=== PATIENT | female | born 1995 | race Caucasian/White ===

== ENCOUNTER 2022-03-20 07:43 | Inpatient (IN) ==
[2022-03-20] MEDS ORDERED: OXYTOCIN 30 UNITS/500 ML BAG IV PRN ×3 (08:43→22:33)
--- NOTE | 2022-03-20 09:23 | History & Physical Report ---
Date of Service March 20, 2022 Assessment & Plan (1) Encounter for induction of labor: Plan: 26 y/o G1 at 39 5/7 wga presents for eIOL VSS Fetus cat 1 Labor - will start pit. BPs normal today, will continue to monitor GBS neg epidural PRN Admission and Anticipated Discharge Date Admission Date: March 20, 2022 History of Present Illness Chief Complaint: eIOL Primary Care Provider: Jazz Hobbs DO 26 y/o G1 at 39 5/7 wga presents for eIOL. Sanchez bulb fell out last night. +FM; denies reg ctx, LOF, VB. Pt has been having intermittent HAs with floaters. BPs have occ been mild range in clinic but normalize when sent to L&D and normal workups. PNI: Labile BPs Past DIRECTOR ORANGE Hx: G1 denies hx STIs reports normal pap 2020 at [facility] [place] Allergies Allergy/AdvReac Type Severity Reaction Status Date / Time No Known Allergies Allergy Verified 03/20/22 08:08 Home Medications Medication Instructions Recorded Confirmed Type albuterol sulfate 90 mcg/actuation 2 puff INHALATION Q6H PRN 09/20/20 03/20/22 History aerosol inhaler prenat.vits,roxie,[id number] 1 tab PO DAILY 08/06/21 03/20/22 History doxylamin 12.5 mg-PSE 10 mg-DM 20 1 packet PO Q4H PRN 03/20/22 03/20/22 History mg-acetaminophen 650 mg oral pwdr pk ([place] Plus Cold-Flu) Patient History Medical History Acquired hallux valgus of right foot Asthma Classic migraine with aura History of MRI of brain and brain stem Done in 2016 for workup of PEGUERO, reportedly normal per pt History of ovarian cyst functional cysts, never required surgery Surgical History H/O wisdom tooth extraction Family History Aunt Colorectal cancer maternal great aunt Mother Anemia Anxiety Grandmother (Maternal) Diabetes Hypertension Denies family history of Ovarian cancer Breast cancer Social History Smoking Status: Never smoker Second Hand Exposure: No; Hx Alcohol Use: No Hx Substance Use: No Preferred Language: Telugu Communication Ability: Effective Broom Stitcher Required: No Beliefs That Will Affect Care: None marital status: marital status details: John (30) [phone] Current Living Situation: Spouse Current Living Situation Comment: lives with spouse, no pets. current occupational status: employed current occupation: Director @ [employer] Other Information That Helps Us Care for You: No Feels Safe at Home: Yes Safety Concerns: Feels Safe At This Time Assistive Devices: None Physical Exam Genitourinary: OB Exam Abdomen: + vertex and + estimated weight (8-9) Manual OB Exam: + cervical dilation (2-3), + cervical effacement 50% and + station high OB Exam Monitor Tracing: + external FHT monitor used, + external uterine monitor used (irreg ctx) and + category I (150/mod/+accel/-decel) Results & Data ([facility]) Vital Signs (Past 12 Hours) Vital Signs Temp Pulse Resp BP 03/20/22 08:06 98.8 F 16 03/20/22 08:05 106 H 128/60 Laboratory Results OB Labs: Blood Type O Positive 08/13/21 Antibody Screen NEGATIVE 08/13/21 Hemoglobin 12.3 g/dL (12.0-16.0) 03/12/22 Hematocrit 36.4 % (37-47) L 03/12/22 Mean Corpuscular Volume 89.2 fL (80-100) 03/12/22 Platelet Count 222 K/uL (130-400) 03/12/22 Rubella IgG Antibody Immune (Immune) 08/13/21 Rapid Plasma Reagin Nonreactive (Nonreactive) 08/13/21 Hepatitis B Surface Antigen Neg (Neg) 08/13/21 Hepatitis C Antibody Neg (Neg)B 08/13/21 HIV (1&2) Ab and P24 Ag, 4th Gener Neg (Neg) 08/13/21 Glucose 1 Hour 50 gm Load 116 mg/dl (70-130) 01/02/22 OB Optional Labs: Chlamydia trachomatis RNA NOT DETECTED (NOT DETECTED) 08/13/21 Neisseria gonorrhoeae RNA NOT DETECTED (NOT DETECTED) 08/13/21 GBS neg Diagnostic Findings ant plac Coding Level of Care Code None Diagnoses Encounter for induction of labor Z34.90
[2022-03-20] MEDS: LACTATED RINGER'S 1,000 ML IV PRN ×3 (09:29→18:52)
[2022-03-20 09:33] LABS: Hematocrit (blood only) 33.8 % (37-47); Hemoglobin 11.5 g/dL (12.0-16.0); Mean Corpuscular Hemoglobin 30.2 pg (25-34); Mean Corpuscular Volume 88.7 fL (80-100); Mean Platelet Volume 9.6 fL (7.4-10.4); Platelet Count 228 K/uL (130-400); RDW Coefficient of Variation 13.5 % (11.5-14.5); RDW Standard Deviation 44.2 fL (36.4-46.3); Red Blood Count 3.81 M/uL (4.2-5.4); White Blood Count 11.61 K/uL (4.8-10.8)
--- NOTE | 2022-03-20 14:04 | Labor Progress Brief Note ---
Date of Service March 20, 2022 Subjective rating ctx 3-12/29 Assessment & Plan (1) Encounter for induction of labor: Plan: 26 y/o G1 at 39 5/7 wga for eIOL VSS Fetus cat 1 Labor - pit at 14, plan for arom in next 1-2 hrs w/ next check gbs neg epidural prn Admission and Anticipated Discharge Date Admission Date: March 20, 2022 Physical Exam Genitourinary: Manual OB Exam: + cervical dilation 3 cm, + cervical effacement 50% and + station -2 OB Exam Monitor Tracing: + external FHT monitor used, + external uterine monitor used (q3-4) and + category I (125/mod/+accel/-decel) Results & Data ([facility]) Vital Signs (Past 12 Hours) Vital Signs Temp Pulse Resp BP 03/20/22 13:57 84 115/58 L 03/20/22 12:57 85 107/57 L 03/20/22 11:57 84 111/58 L 03/20/22 11:05 98.1 F 16 03/20/22 10:58 98 H 99/72 L 03/20/22 10:03 93 H 96/63 L 03/20/22 08:06 98.8 F 16 03/20/22 08:05 106 H 128/60 Coding Level of Care Code None Diagnoses Encounter for induction of labor Z34.90
--- NOTE | 2022-03-20 15:20 | Labor Progress Brief Note ---
Date of Service March 20, 2022 Subjective Ctx getting worse Assessment & Plan (1) Encounter for induction of labor: Plan: 26 y/o G1 at 39 5/7 wga for eIOL VSS Fetus cat 1 Labor - pit at 16, now s/p arom gbs neg epidural prn Admission and Anticipated Discharge Date Admission Date: March 20, 2022 Physical Exam Genitourinary: Manual OB Exam: + cervical dilation (3-4), + cervical effacement 50%, + station -2 and + amniotic fluid (arom clear) OB Exam Monitor Tracing: + external FHT monitor used, + external uterine monitor used (q3-4) and + category I (130/mod/+accel/-decel) Results & Data ([facility]) Vital Signs (Past 12 Hours) Vital Signs Temp Pulse Resp BP 03/20/22 15:00 93 H 136/60 03/20/22 13:57 84 115/58 L 03/20/22 12:57 85 107/57 L 03/20/22 11:57 84 111/58 L 03/20/22 11:05 98.1 F 16 03/20/22 10:58 98 H 99/72 L 03/20/22 10:03 93 H 96/63 L 03/20/22 08:06 98.8 F 16 03/20/22 08:05 106 H 128/60 Coding Level of Care Code None Diagnoses Encounter for induction of labor Z34.90
[2022-03-20] MEDS ORDERED: ePHEDrine sulfate 50 MG/ML AMP ONE (15:26)
[2022-03-20] MEDS ORDERED: fentaNYL citrate 100 MCG/2 ML VIAL ONE (15:27)
[2022-03-20] MEDS ORDERED: fentaNYL 2MCG/ML ROPIVACAINE 1.25MG/ML 100 ML BAG EPI ONE (15:27)
[2022-03-20] MEDS ORDERED: SODIUM CHLORIDE 0.9% INJ 10 ML VIAL ONE (15:27)
[2022-03-20] MEDS ORDERED: BUPIVACAINE 0.25% 30 ML VIAL ONE (15:27)
[2022-03-20] MEDS ORDERED: ePHEDrine sulfate 50 MG/ML AMP IV PRN (15:45)
[2022-03-20] MEDS ORDERED: fentaNYL 2MCG/ML ROPIVACAINE 1.25MG/ML 100 ML BAG EPI PRN (15:45)
[2022-03-20] MEDS ORDERED: CALCIUM CARBONATE 500 MG CHEWABLE TAB PO PRN (15:45)
[2022-03-20] MEDS ORDERED: ONDANSETRON INJ 2 MG/ML 2 ML VIAL IV PRN (15:45)
[2022-03-20] MEDS ORDERED: NALOXONE HCL 0.4 MG/1 ML VIAL/CARP IV PRN (15:45)
[2022-03-20] MEDS ORDERED: diphenhydrAMINE 50 MG/ML VIAL IV PRN (15:45)
[2022-03-20] MEDS ORDERED: NALBUPHINE HCL INJ 10 MG/ML AMP IV PRN (15:45)
[2022-03-20] MEDS ORDERED: NALOXONE HCL 1 MG in SODIUM CHLORIDE 0.9% 1000ML 1,000 ML IV PRN (15:45)
--- NOTE | 2022-03-20 15:48 | Anesthesiology Consultation ---
Date of Service March 20, 2022 Assessment & Plan Chart Review Chart Review: Patient NOT seen in Pre Admission Testing and Acceptable Risk for Labor Epidural Consults Requested none ASA ASA2 Proposed Anesthesia Anesthesia Type: Labor Epidural and CSE Risk / Benefits Reviewed With: PT / POA / Parent / Guardian, Accepts Plan and Informed Consent Obtained History Height/Weight Height: 5 ft 6 in Weight: 99.79 kg Allergies Allergy/AdvReac Type Severity Reaction Status Date / Time No Known Allergies Allergy Verified 03/20/22 08:08 Medications Home Medications Medication Instructions Recorded Confirmed Last Taken albuterol sulfate 90 mcg/actuation 2 puff INHALATION Q6H PRN 09/20/20 03/20/22 Unknown aerosol inhaler prenat.vits,roxie,[id number] 1 tab PO DAILY 08/06/21 03/20/22 03/19/22 22:00 doxylamin 12.5 mg-PSE 10 mg-DM 20 1 packet PO Q4H PRN 03/20/22 03/20/22 03/20/22 06:30 mg-acetaminophen 650 mg oral pwdr pk ([place] Plus Cold-Flu) Active Medications Generic Name Dose Route Start Last Admin Trade Name Freq PRN Reason Stop Dose Admin Lactated Ringer's 1,000 mls @ 125 mls/hr 03/20/22 08:43 03/20/22 15:30 Lr IV 03/22/22 08:42 999 mls/hr .Q8H PRN Administration L&D Protocol Protocol Oxytocin 30 units in 500 mls @ 14 mls/hr 03/20/22 08:46 03/20/22 13:30 Pitocin IV 03/22/22 08:45 0.84 units/hr .Q24H PRN 14 mls/hr Labor Induction/Augmentation Titration Protocol 0.84 UNITS/HR NPO Date Last Intake of Fluids: 03/20/22 Time Last Intake of Fluids: 14:30 Date Last Intake of Solids: 03/20/22 Time Last Intake of Solids: 07:00 Past Medical History Medical History Acquired hallux valgus of right foot Asthma Classic migraine with aura History of MRI of brain and brain stem Done in 2016 for workup of PEGUERO, reportedly normal per pt History of ovarian cyst functional cysts, never required surgery Exercise / Class Metabolic Activity II 4-5 Yardwork/Stairs/Walk up hill Past Family History Family History Aunt Colorectal cancer maternal great aunt Mother Anemia Anxiety Grandmother (Maternal) Diabetes Hypertension Denies family history of Ovarian cancer Breast cancer Past Surgical History Surgical History H/O wisdom tooth extraction Past Anesthesia History No Hx of Anesthesia Complications and No Family Hx of Anesthesia Complications History of PONV No Hx of PONV and No Hx of Motion Sickness Social History Smoking Status: Never smoker Hx Alcohol Use: No Hx Substance Use: No substance use type: does not use Review of Systems no chest pain or sob Physical Exam Vital Signs Last Vital Signs Temp 36.7 C 03/20/22 11:05 Pulse 93 H 03/20/22 15:42 Resp 16 03/20/22 11:05 BP 136/60 03/20/22 15:00 Pulse Ox 100 03/20/22 15:42 ENMT Mouth: no TMJ abnormality Thyromental Distance: > or= 3.5 Finger Breadths Mallampati Class: II Neck normal visual inspection Respiratory normal respiratory effort Auscultation: lungs clear to auscultation bilaterally Cardiovascular Rate/Rhythm: regular rate and regular rhythm Musculoskeletal Spine: normal cervical ROM Neurologic moves all extremities Psychiatric Orientation: alert and oriented x 3 Testing Laboratory Results 03/20/22 09:15 Blood Type O Positive 03/20/22 09:15 Antibody Screen NEGATIVE 03/20/22 09:15
--- NOTE | 2022-03-20 22:22 | Delivery Summary ---
Vaginal Delivery Summary Date of Service March 20, 2022 Vaginal Delivery Summary and 2nd Degree LAC PREOPERATIVE DIAGNOSIS: 1. Single intrauterine at 39 5/7 wga 2. Elective induction POSTOPERATIVE DIAGNOSIS: 1. Single intrauterine at 39 5/7 wga 2. Elective induction 3. Delivered PROCEDURE: 1. Normal spontaneous vaginal delivery. SURGEON: Gloria Shanks MD ANESTHESIA: Epidural. ESTIMATED BLOOD LOSS: 300 mL FLUIDS: Continuous LR. URINE OUTPUT: None. COMPLICATIONS: None. CONDITION: Stable. INDICATIONS: 26 y/o G1 at 39 5/7 wga presented for elective induction. She has had labile blood pressures over the last few weeks, BP was normal today. Sanchez bulb was placed and spontaneously expulsed. Pitocin was then started and she underwent artificial rupture of membranes. She received an epidural for pain control. Due to variable decels, pitocin was turned off. Approximately 1 hour later pitocin was restarted. Shortly thereafter variables were again noted, she was checked and found to be complete and desired to push. FINDINGS: A viable female infant, weight pending with Apgars of 8 and 8 at 1 and 5 minutes respectively. SPECIMEN: Cord blood OPERATIVE REPORT: The patient progressed to 10 cm, 100% effaced and +2 station, pushed over intact perineum with anesthesia to deliver a viable female infant, weight and Apgars as above. Head of delivered in APOLONIA position. No nuchal cord was present. Body and shoulders were delivered without difficulty. was delivered to maternal abdomen and nursing staff. Delayed cord clamping was performed for 60 seconds. Cord was clamped and cut. Cord blood was obtained. Placenta delivered spontaneously intact with 3-vessel cord. IV oxytocin and fundal massage were given for excellent hemostasis. Vagina, cervix, perineum, and placenta were inspected. A second degree laceration was noted and repaired using 3-0 Vic[address] a [address]1. There was excellent hemostasis. Sponge and needle counts correct x2. No sponges were left behind. Mother and stable in immediate period. [facility] [place] Vaginal Delivery Charge Vaginal Delivery Codes: 65978 global code for the antepartum, delivery, and post- Delivery Type Details: and 2nd Degree LAC
[2022-03-20] MEDS ORDERED: bisacodyL 10 MG SUPP PR PRN (22:33)
[2022-03-20] MEDS ORDERED: DIPHTHERIA/TETANUS/PERTUSSIS 0.5 ML SYR/VIAL IM ONE (22:33)
[2022-03-20] MEDS ORDERED: ALBUTEROL HFA 8 GM INHALER INH PRN (22:33)
[2022-03-20] MEDS ORDERED: HYDROCORTISONE ACETATE 25 MG SUPP PR PRN (22:33)
[2022-03-20] MEDS ORDERED: [UNRECOGNIZED DRUG - OTHER] PO PRN (22:33)
[2022-03-20] MEDS ORDERED: ACETAMINOPHEN 325 MG TAB PO PRN (22:33)
[2022-03-20] MEDS: BENZOCAINE 20% AER SPR 82.5 GM CAN EXT PRN (23:22)
[2022-03-21] MEDS: BENZOCAINE 20% AER SPR 82.5 GM CAN EXT PRN (00:53)
[2022-03-21] MEDS: IBUPROFEN 600 MG TAB PO PRN ×4 (04:00→19:55)
--- NOTE | 2022-03-21 07:02 | Obstetrical Progress Note ---
Date of Service March 21, 2022 Assessment & Plan (1) Encounter for care and examination after delivery: Plan: Patient is a 26-year-old now G1, P1 female who delivered via normal spontaneous vaginal delivery, day 1. Patient had no complications. -Continue routine care -O+, antibody negative, rubella immune, GBS negative -Encouraged ambulation and breast-feeding -Continue to monitor cough, seems to be improving -6-week follow-up with Dr. Shanks Admission and Anticipated Discharge Date Admission Date: March 20, 2022 Supervising Physician Co-Signing Physician Notes Resident Physician Supervision Note: I was present with Dr. Perez during the history and exam. I discussed the case with the resident and agree with the findings and plan as documented in the note. Any exceptions or clarifications are listed here: PP1 s/p , doing well. VSS, exam benign and wnl. Continue rout pp care Documented By: Gloria Shanks MD Subjective Patient is a 26-year-old now G1, P1 female who delivered via normal spontaneous vaginal delivery, day 1. Patient had no complications. Patient overall doing well. Ambulating around the room and voiding without difficulty. Patient is eating and drinking without nausea or vomiting. Passing gas. Patient is breast-feeding without difficulty. Does report that she is having a cough that made her pain difficult to bear yesterday but it does seem to be improving especially after waking up this morning. Pain controlled today. Lochia improving. patient otherwise denies fever, chills, chest pain, shortness of breath, UTI symptoms, or headache. Patient has no other complaints at this time. Review of Systems Review of Systems: All systems reviewed & are unremarkable except as noted in HPI & below Physical Exam Constitutional: WD/WN, vitals as above Eyes: + anicteric sclerae Neck: normal visual inspection Respiratory: normal respiratory effort, lungs clear to auscultation Cardiovascular: RRR, no murmur, no edema Gastrointestinal (Abdomen): normal bowel sounds, soft, nontender, no hepatosplenomegaly Musculoskeletal: Head/Neck/Chest: normocephalic and head atraumatic Skin: no rashes, warm and dry Neurologic: moves all extremities Psychiatric: A+Ox3, euthymic affect Genitourinary: Uterine fundus palpated at the level of the umbilicus, firm Results & Data ([facility]) Vital Signs (Past 12 Hours) Vital Signs Temp Pulse Pulse Resp BP BP Pulse Ox 03/21/22 03:30 36.9 C 83 16 116/77 97 03/21/22 01:00 36.7 C 87 16 126/78 97 03/21/22 00:10 93 H 18 129/72 03/20/22 23:44 99 H 119/73 03/20/22 23:40 18 03/20/22 23:16 97 H 124/59 L 03/20/22 23:10 18 03/20/22 23:01 86 141/83 H 03/20/22 22:55 18 03/20/22 22:52 86 97 03/20/22 22:47 96 H 96 03/20/22 22:46 95 H 132/85 03/20/22 22:42 84 97 03/20/22 22:40 18 03/20/22 22:37 90 97 03/20/22 22:32 85 97 03/20/22 22:28 93 H 133/63 03/20/22 22:27 86 96 03/20/22 22:25 18 03/20/22 22:23 89 138/61 03/20/22 22:22 90 97 03/20/22 22:18 97 H 143/93 H 03/20/22 22:17 97 H 97 03/20/22 22:12 94 H 134/64 97 03/20/22 22:10 18 03/20/22 22:07 94 H 95 03/20/22 22:06 94 H 94 03/20/22 22:04 90 144/72 H 03/20/22 22:02 99 H 96 03/20/22 21:57 117 H 99 03/20/22 21:52 108 H 98 03/20/22 21:47 95 H 97 03/20/22 21:44 97 H 143/79 H 03/20/22 21:42 108 H 96 03/20/22 21:37 98 H 97 03/20/22 21:36 104 H 92 03/20/22 21:32 108 H 97 03/20/22 21:29 94 H 136/79 03/20/22 21:27 93 H 97 03/20/22 21:22 101 H 98 03/20/22 21:17 100 H 98 03/20/22 21:15 102 H 142/79 H 03/20/22 21:12 99 H 98 03/20/22 21:09 37.2 C 18 03/20/22 21:07 104 H 98 03/20/22 21:02 101 H 99 03/20/22 20:59 104 H 136/75 03/20/22 20:57 101 H 99 03/20/22 20:52 104 H 99 03/20/22 20:47 107 H 99 03/20/22 20:44 97 H 133/70 03/20/22 20:42 108 H 100 03/20/22 20:37 111 H 100 03/20/22 20:32 107 H 100 03/20/22 20:30 105 H 142/75 H 03/20/22 20:27 93 H 100 03/20/22 20:22 89 100 03/20/22 20:17 86 100 03/20/22 20:14 81 122/64 03/20/22 20:12 80 99 03/20/22 20:07 77 100 03/20/22 20:02 80 100 03/20/22 19:59 80 124/65 03/20/22 19:57 83 100 03/20/22 19:52 94 H 99 03/20/22 19:47 90 99 03/20/22 19:44 84 123/67 03/20/22 19:42 84 98 03/20/22 19:37 92 H 100 03/20/22 19:32 87 100 03/20/22 19:29 81 113/62 03/20/22 19:27 83 100 03/20/22 19:22 84 99 03/20/22 19:17 76 99 03/20/22 19:14 75 124/64 03/20/22 19:12 84 99 03/20/22 19:10 36.8 C 18 03/20/22 19:07 81 99 03/20/22 19:02 81 99
[2022-03-21] MEDS: DOCUSATE SODIUM 100 MG CAP PO SCH ×2 (08:36→22:11)
[2022-03-21] MEDS: PRENATAL VITAMIN 1 TAB PO SCH (08:36)
[2022-03-21] MEDS: FERROUS SULFATE 325 MG TAB PO SCH (08:36)
--- NOTE | 2022-03-21 11:33 | Anesthesia Procedure Note ---
Date of Service March 21, 2022 Anesthesia Post Epidural Note Vital Signs Vital Signs: Temp Pulse Resp BP Pulse Ox 36.9 C 83 16 116/77 97 03/21/22 03:30 03/21/22 03:30 03/21/22 03:30 03/21/22 03:30 03/21/22 03:30 Notes Mental Status: alert / awake / arousable Patient Amnestic to Procedure: No Nausea / Vomiting: adequately controlled Pain: adequately controlled Airway Patency, RR, SpO2: stable & adequate BP & HR: stable & adequate Hydration State: stable & adequate Neuraxial Anesthesia: was administered and sensory block is resolving Anesthetic Complications: no major complications apparent and Pt Satisfied with anesthetic care Epidural: Removed without complications and With tip intact
[2022-03-21] MEDS ORDERED: bisacodyL 5 MG TABEC PO SCH (20:00)
[2022-03-22] MEDS: IBUPROFEN 600 MG TAB PO PRN ×2 (00:59→08:14)
[2022-03-22] MEDS ORDERED: PSEUDOEPHEDRINE HCL 30 MG TAB PO PRN (04:46)
--- NOTE | 2022-03-22 05:17 | Obstetrical Progress Note ---
Date of Service March 22, 2022 Assessment & Plan (1) Encounter for care and examination after delivery: Plan: Patient is a 26-year-old now G1, P1 female who delivered via normal spontaneous vaginal delivery, day 2. Patient had no complications. -Continue routine care, discharge today if pt feels ready, discharge instructions reviewed -O+, antibody negative, rubella immune, GBS negative -Encouraged ambulation and breast-feeding -Continue to monitor cough, seems to be improving -6-week follow-up with Dr. Shanks Admission and Anticipated Discharge Date Admission Date: March 20, 2022 Supervising Physician Co-Signing Physician Notes Resident Physician Supervision Note: I was present with Dr. Perez during the history and exam. I discussed the case with the resident and agree with the findings and plan as documented in the note. Any exceptions or clarifications are listed here: PPD#2 doing well. DC home today. Instructions reviewed. Documented By: Puja Arias, DO Subjective Patient is a 26-year-old now G1, P1 female who delivered via normal spontaneous vaginal delivery, day 2. Patient had no complications. Patient overall doing well. Ambulating around the room and voiding without difficulty. Patient is eating and drinking without nausea or vomiting. Passing gas. Patient is breast-feeding without difficulty. Patient reports that her cough over the past couple of days has improved significantly. Pain controlled today. Lochia improving. patient otherwise denies fever, chills, chest pain, shortness of breath, UTI symptoms, or headache. Patient has no other complaints at this time. Review of Systems Review of Systems: All systems reviewed & are unremarkable except as noted in HPI & below Physical Exam Constitutional: WD/WN, vitals as above Eyes: + anicteric sclerae Neck: normal visual inspection Respiratory: normal respiratory effort, lungs clear to auscultation Cardiovascular: RRR, no murmur, no edema Gastrointestinal (Abdomen): normal bowel sounds, soft, nontender, no hepatosplenomegaly Musculoskeletal: Head/Neck/Chest: normocephalic and head atraumatic Skin: no rashes, warm and dry Neurologic: moves all extremities Psychiatric: A+Ox3, euthymic affect Genitourinary: Uterine fundus palpated at the level of the umbilicus, firm Results & Data ([facility]) Vital Signs (Past 12 Hours) Vital Signs Temp Pulse Resp BP Pulse Ox 03/22/22 04:06 36.5 C 75 16 117/84 95 03/21/22 23:07 36.9 C 67 16 111/74 97 03/21/22 19:50 36.5 C 82 18 109/72 97
[2022-03-22] MEDS: PRENATAL VITAMIN 1 TAB PO SCH (08:14)
[2022-03-22] MEDS: FERROUS SULFATE 325 MG TAB PO SCH (08:14)
[2022-03-22] MEDS: DOCUSATE SODIUM 100 MG CAP PO SCH (08:15)
== END 2022-03-22 13:00 | disposition home or self-care (01) | DRG 807 ==
LOC: 4S1 07:43 → 4E2 03-21 00:42

== ENCOUNTER 2024-05-30 07:39 | Inpatient (IN) ==
[2024-05-30] MEDS ORDERED: OXYTOCIN 30 UNITS/NSS 30 UNITS/500 ML BAG IV PRN ×2 (07:44→20:31)
[2024-05-30] MEDS ORDERED: LIDOCAINE 1% LOCAL 20 ML VIAL INFIL PRN (07:44)
[2024-05-30 08:07] LABS: Hematocrit (blood only) 37.8 % (37.0-47.0); Hemoglobin 12.6 g/dl (12.0-16.0); Mean Corpuscular Hemoglobin 29.2 pg (25.0-34.0); Mean Corpuscular Hgb Conc 33.3 g/dL (32.0-36.0); Mean Corpuscular Volume 87.5 fL (80.0-100.0); Mean Platelet Volume 10.5 fL (9.4-12.4); Platelet Count 231 K/uL (130-400); RDW Coefficient of Variation 13.9 % (11.5-14.5); RDW Standard Deviation 43.8 fL (36.4-46.3); Red Blood Count 4.32 M/uL (4.20-5.40); White Blood Count 10.65 K/ul (4.8-10.8)
--- NOTE | 2024-05-30 08:43 | Labor Progress Brief Note ---
Date of Service May 30, 2024 Subjective No OB complaints upon arrival. For IOL given successful ECV and now >39wk. Assessment & Plan (1) Encounter for induction of labor: Plan: US to confirm cephalic, and then begin pit, AROM when able, epidural on request. Admission and Anticipated Discharge Date Admission Date: May 30, 2024 Physical Exam Genitourinary: Cvx unchanged from last office exam, /-2/soft/post FHT Cat 1 Rogers quiet. Results & Data Vital Signs (Past 12 Hours) Vital Signs Temp Pulse Resp BP 05/30/24 08:07 98.6 F 20 05/30/24 07:53 97 H 140/82 Coding Level of Care Code None Diagnoses Encounter for induction of labor Z34.90
[2024-05-30] MEDS: LACTATED RINGER'S 1,000 ML IV PRN (08:49)
[2024-05-30] MEDS: OXYTOCIN 30 UNITS/NSS 30 UNITS/500 ML BAG IV PRN (09:11)
[2024-05-30] MEDS: CALCIUM CARBONATE 500 MG CHEWABLE TAB PO PRN (09:23)
[2024-05-30] MEDS ORDERED: SODIUM CHLORIDE 0.9% PF INJ 10 ML VIAL EPI PRN (12:41)
[2024-05-30] MEDS ORDERED: fentaNYL citrate PF 100 MCG/2 ML VIAL EPI PRN (12:41)
[2024-05-30] MEDS ORDERED: NALBUPHINE HCL INJ 10 MG/ML AMP IV PRN (12:41)
[2024-05-30] MEDS ORDERED: fentANYL 2 MCG/ML BUPIVacaine 0.125%-NSS 100ML BAG EPI PRN (12:41)
[2024-05-30] MEDS ORDERED: BUPIVACAINE 0.25% PF 30 ML VIAL EPI PRN (12:41)
[2024-05-30] MEDS ORDERED: diphenhydrAMINE 50 MG/ML VIAL IV PRN (12:41)
[2024-05-30] MEDS ORDERED: LIDOCAINE 2% MPF LOCAL 5 ML VIAL EPI PRN (12:41)
[2024-05-30] MEDS ORDERED: ROPIVACAINE 0.5% PF 5 MG/ML 20 ML VIAL EPI PRN (12:41)
[2024-05-30] MEDS ORDERED: NALOXONE HCL 1 MG in SODIUM CHLORIDE 0.9% 1,000 ML IV PRN (12:41)
[2024-05-30] MEDS ORDERED: ePHEDrine sulfate 50 MG/ML AMP IV PRN (12:41)
[2024-05-30] MEDS ORDERED: NALOXONE HCL 0.4 MG/1 ML VIAL/CARP IV PRN (12:41)
[2024-05-30] MEDS ORDERED: ONDANSETRON INJ 2 MG/ML 2 ML VIAL IV PRN (12:41)
--- NOTE | 2024-05-30 12:43 | Anesthesiology Consultation ---
Date of Service May 30, 2024 Assessment & Plan (1) Encounter for pre-operative examination: Chart Review Chart Review: Patient NOT seen in Pre Admission Testing and Acceptable Risk for Labor Epidural Consults Requested none History Height/Weight Height: 5 ft 6 in Weight: 101.605 kg Allergies Allergy/AdvReac Type Severity Reaction Status Date / Time sumatriptan [From Imitrex] Allergy Mild Palpitation Verified 05/27/24 15:28 s Medications Home Medications Medication Instructions Recorded Confirmed Last Taken albuterol sulfate 90 mcg/actuation 2 puff inhalation Q6H PRN 09/20/20 05/27/24 1 Month Ago aerosol inhaler Bronchitis ~02/13/24 calcium carbonate (Tums) 500 mg Q4 PRN Acid Reflux 04/03/24 05/27/24 05/11/24 23:00 vit no.95-ferrous 1 tab PO HS 04/03/24 05/27/24 05/11/24 22:00 fumarate 28 mg-folic acid 800 mcg tablet () Active Medications Generic Name Dose Route Start Last Admin Trade Name Freq PRN Reason Stop Dose Admin Calcium Carbonate 1,500 mg 05/30/24 08:59 05/30/24 09:23 Calcium Carbonate 500 Mg Chewable Tab PO 06/29/24 08:58 1,500 mg TID PRN Administration Indigestion Lactated Ringer's 1,000 mls @ 125 mls/hr 05/30/24 07:44 05/30/24 12:24 Lr IV 06/01/24 07:43 999 mls/hr .Q8H PRN Infusion L&D Protocol Protocol Oxytocin 30 units in 500 mls @ 12 mls/hr 05/30/24 08:46 05/30/24 12:37 Pitocin 30 Units/Nss IV 06/01/24 08:45 0.72 units/hr .Q24H PRN 12 mls/hr Labor Induction/Augmentation Titration Protocol 0.72 UNITS/HR Past Medical History Medical History (Updated 05/30/24 @ 12:43 by João Hall MD) Encounter for pre-operative examination Anxiety refer to psychologist has not seen yet. mild depression after first child. It resolved when finished breast pumping Migraines ocas Asthma bronchitis and uses inhaler when have flare up History of ovarian cyst functional cysts, never required surgery Acquired hallux valgus of right foot right bunion History of MRI of brain and brain stem Done in 2016 for workup of PEGUERO, reportedly normal per pt Exercise / Class Metabolic Activity II 4-5 Yardwork/Stairs/Walk up hill Past Family History Family History Aunt Colorectal cancer maternal great aunt Mother Anemia Anxiety Grandmother (Maternal) Diabetes Hypertension Dementia CHF (congestive heart failure) Grandfather (Maternal) CHF (congestive heart failure) Denies family history of Ovarian cancer Breast cancer Past Surgical History Surgical History H/O wisdom tooth extraction Social History Smoking Status: Never smoker Do You Dip or Chew Tobacco: No Hx Alcohol Use: No Hx Substance Use: No substance use type: does not use Physical Exam Vital Signs Last Vital Signs Temp 37.0 C 05/30/24 11:00 Pulse 79 05/30/24 12:23 Resp 18 05/30/24 11:00 BP 132/73 05/30/24 12:23 Testing Laboratory Results 05/30/24 07:51 Blood Type Cancelled 05/30/24 07:51 Blood Type O Positive 05/30/24 07:51 Antibody Screen Cancelled 05/30/24 07:51 Antibody Screen NEGATIVE 05/30/24 07:51
[2024-05-30] MEDS: fentANYL 2 MCG/ML BUPIVacaine 0.125%-NSS 100ML BAG ONE (13:08)
[2024-05-30] MEDS: fentaNYL citrate PF 100 MCG/2 ML VIAL ONE (13:20)
[2024-05-30] MEDS: BUPIVACAINE 0.25% PF 30 ML VIAL ONE (13:21)
[2024-05-30] MEDS: LIDOCAINE 2%/EPINEPHRINE 1:200,000 20 ML PF ONE (13:21)
[2024-05-30] MEDS: BUPIVACAINE 0.25% PF 30 ML VIAL EPI STA (13:41)
[2024-05-30] MEDS: fentaNYL citrate PF 100 MCG/2 ML VIAL EPI STA (13:41)
[2024-05-30] MEDS: SODIUM CHLORIDE 0.9% PF INJ 10 ML VIAL EPI STA (13:41)
[2024-05-30] MEDS: LIDOCAINE 2%/EPINEPHRINE 1:200,000 20 ML PF EPI STA (13:41)
[2024-05-30] MEDS: SODIUM CHLORIDE 0.9% PF INJ 10 ML VIAL ONE (13:41)
--- NOTE | 2024-05-30 20:19 | Delivery Summary ---
Vaginal Delivery Summary Date of Service May 30, 2024 Vaginal Delivery Summary DIAGNOSES: 1. Hale intrauterine at 39w6d gestation. 2. Induction of Labor (Elective, following successful ECV). 3. Group B Streptococcus Neg. PROCEDURE: Spontaneous vaginal delivery without laceration. SURGEON: Gabriela Burnett MD. CIVIL DESIGNER: None. QUANTITATIVE BLOOD LOSS: 25 mL. COMPLICATIONS: None. PLACENTA: Spontaneous and intact with a 3-vessel cord. DISPOSITION: Stable to labor and delivery. DESCRIPTION: The patient pushed well and brought the head to in doa position. The 's head was allowed to deliver with contraction force and no further active pushing, with the perineum protected during this time. There was no nuchal cord. The left shoulder was anterior. The shoulders and body delivered without any difficulty, and the was placed on the maternal abdomen. It was vigorous and moving all extremities, and making respiratory efforts. The cord was doubly clamped by the MD and then cut by the FOB. The placenta delivered spontaneously and was noted to be intact and with a 3VC. The cervix, vagina and perineum were examined and were found to be without defect requiring repair. The fundus was firm and lochia minimal immediately after delivery. [facility] Vaginal Delivery Charge Vaginal Delivery Codes: 67584 global code for the antepartum, delivery, and p ost-
[2024-05-30] MEDS ORDERED: bisacodyL 10 MG SUPP PR PRN (20:31)
[2024-05-30] MEDS ORDERED: DIPHTHER/TETAN/PERTUS Vaccine (Tdap, Adol/Adult) 0.5mL IM ONE (20:31)
[2024-05-30] MEDS ORDERED: BENZOCAINE 20% SPRY 85 APPLN/85 GM CAN EXT PRN (20:31)
[2024-05-30] MEDS ORDERED: HYDROCORTISONE ACETATE 25 MG SUPP PR PRN (20:31)
[2024-05-30] MEDS ORDERED: oxyCODONE/ACETAMINOPHEN 5mg/325mg TAB PO PRN (20:31)
--- NOTE | 2024-05-30 21:07 | Anesthesia Procedure Note ---
Date of Service May 30, 2024 Anesthesia Post Epidural Note Vital Signs Vital Signs: Temp Pulse Resp BP Pulse Ox 36.9 C 79 18 126/65 96 05/30/24 18:57 05/30/24 21:01 05/30/24 20:30 05/30/24 21:01 05/30/24 20:20 Notes Mental Status: alert / awake / arousable and participated in evaluation Patient Amnestic to Procedure: No Nausea / Vomiting: adequately controlled Pain: adequately controlled Airway Patency, RR, SpO2: stable & adequate BP & HR: stable & adequate Hydration State: stable & adequate Neuraxial Anesthesia: was administered and sensory block is resolving Anesthetic Complications: no major complications apparent and Pt Satisfied with anesthetic care Epidural: Removed without complications and With tip intact
[2024-05-30] MEDS: ePHEDrine sulfate 50 MG/ML AMP ONE (21:52)
[2024-05-30] MEDS: DOCUSATE SODIUM 100 MG CAP PO SCH (22:08)
[2024-05-30] MEDS: IBUPROFEN 600 MG TAB PO PRN (22:13)
[2024-05-31] MEDS: CALCIUM CARBONATE 500 MG CHEWABLE TAB PO PRN (01:16)
[2024-05-31] MEDS: ACETAMINOPHEN 325 MG TAB PO PRN (03:50)
--- NOTE | 2024-05-31 05:38 | Obstetrical Progress Note ---
Date of Service May 31, 2024 Assessment & Plan (1) Encounter for care and examination after delivery: Plan Pt is 29 yo post- day 1 s/p at 40w0d. was uncomplicated. Encourage ambulation and breast feeding Motrin 600mg q4h PRN and Tylenol 650mg q6h PRN for pain Monitor vitals Pt to follow up with Dr. Burnett in 6 weeks D/C to home after 24 hr stay Admission and Anticipated Discharge Date Admission Date: May 30, 2024 Supervising Physician Co-Signing Physician Notes Resident Physician Supervision Note: I interviewed and examined the patient. Discussed with the resident doctor and agree with findings and plan as documented in the note. Any exceptions or clarifications are listed here: [ ] Documented By: Gabriela Burnett MD, FACOG Subjective Pt is 29 yo post- day 1 s/p at 40w0d. was uncomplicated. Ambulation:In and out of room Voiding:voiding normally Passing gas: yes BM: no Diet tolerance:regular diet Lochia:bloody, no clots Feeding type: breast Current pain level: 4-5 /10 improved with ibuprofen and tylenol Resting comfortably this morning in NAD. Denies PEGUERO, CP, SOB, N/V/D, LE pain/swelling. Review of Systems Review of Systems: As per HPI Physical Exam Constitutional: WD/WN, vitals as above Respiratory: normal respiratory effort, lungs clear to auscultation Cardiovascular: RRR, no murmur, no edema Gastrointestinal (Abdomen): normal bowel sounds, soft, nontender, no hepatosplenomegaly Uterine fundus firm and 1 cm below umbilicus Neurologic: PERRL, EOMI, accommodation nl, no face palsy, no dysarthria Moving all 4 extremities on command Psychiatric: A+Ox3, euthymic affect Results & Data Vital Signs (Past 12 Hours) Vital Signs Temp Pulse Pulse Resp BP BP Pulse Ox 05/31/24 03:45 36.7 C 77 16 115/75 97 05/30/24 23:47 36.7 C 80 18 127/78 98 05/30/24 23:16 77 05/30/24 23:16 129/74 05/30/24 23:01 80 05/30/24 23:01 123/71 05/30/24 22:46 82 09/09/24 22:46 128/72 05/30/24 22:31 83 05/30/24 22:31 115/56 L 05/30/24 22:30 18 05/30/24 22:16 100 H 05/30/24 22:16 133/71 05/30/24 22:01 95 H 05/30/24 22:01 122/61 05/30/24 22:00 18 05/30/24 21:46 91 H 05/30/24 21:46 116/64 05/30/24 21:31 95 H 05/30/24 21:31 126/77 05/30/24 21:30 18 05/30/24 21:16 85 05/30/24 21:16 120/63 05/30/24 21:15 18 05/30/24 21:01 79 05/30/24 21:01 126/65 05/30/24 20:46 88 05/30/24 20:46 134/68 05/30/24 20:45 37.1 C 18 05/30/24 20:31 86 05/30/24 20:31 108/56 L 05/30/24 20:30 18 05/30/24 20:20 96 05/30/24 20:20 90 05/30/24 20:15 97 05/30/24 20:15 93 H 05/30/24 20:14 93 H 05/30/24 20:14 120/58 L 05/30/24 20:11 89 L 05/30/24 20:11 100 H 05/30/24 20:10 95 05/30/24 20:10 100 H 05/30/24 20:05 97 05/30/24 20:05 99 H 05/30/24 20:00 95 05/30/24 20:00 92 H 05/30/24 19:58 88 05/30/24 19:58 126/75 05/30/24 19:55 95 05/30/24 19:55 89 05/30/24 19:50 95 05/30/24 19:50 93 H 05/30/24 19:45 97 05/30/24 19:45 85 05/30/24 19:43 76 05/30/24 19:43 128/77 05/30/24 19:40 95 05/30/24 19:40 86 05/30/24 19:35 96 05/30/24 19:35 92 H 05/30/24 19:30 98 05/30/24 19:30 89 05/30/24 19:28 83 05/30/24 19:28 125/77 05/30/24 19:25 97 05/30/24 19:25 85 05/30/24 19:20 98 05/30/24 19:20 87 05/30/24 19:15 98 05/30/24 19:15 81 05/30/24 19:13 81 05/30/24 19:13 127/75 05/30/24 19:10 98 05/30/24 19:10 84 05/30/24 19:05 97 05/30/24 19:05 84 05/30/24 19:00 97 05/30/24 19:00 83 05/30/24 18:58 91 H 05/30/24 18:58 132/79 05/30/24 18:57 36.9 C 18 05/30/24 18:55 93 05/30/24 18:55 92 H 05/30/24 18:50 97 05/30/24 18:50 84 05/30/24 18:45 93 05/30/24 18:45 118 H 05/30/24 18:44 93 H 05/30/24 18:44 148/75 H 05/30/24 18:40 98 05/30/24 18:40 90 05/30/24 18:35 98 05/30/24 18:35 84 05/30/24 18:33 87 L 05/30/24 18:33 90 05/30/24 18:30 96 05/30/24 18:30 84 05/30/24 18:28 82 05/30/24 18:28 128/78 05/30/24 18:25 96 05/30/24 18:25 89 05/30/24 18:20 96 05/30/24 18:20 84 05/30/24 18:15 95 05/30/24 18:15 78 05/30/24 18:15 77 05/30/24 18:15 124/78 05/30/24 18:10 96 05/30/24 18:10 79 05/30/24 18:05 95 05/30/24 18:05 78 05/30/24 18:00 94 05/30/24 18:00 80 05/30/24 17:59 71 05/30/24 17:59 115/70 05/30/24 17:55 94 05/30/24 17:55 75 05/30/24 17:50 95 05/30/24 17:50 80 05/30/24 17:45 94 05/30/24 17:45 73 05/30/24 17:43 79 05/30/24 17:43 111/66 05/30/24 17:40 96 05/30/24 17:40 92 H O2 Del Method 05/31/24 03:45 Room Air 05/30/24 23:47 Room Air 05/30/24 23:16 05/30/24 23:16 05/30/24 23:01 05/30/24 23:01 05/30/24 22:46 05/30/24 22:46 05/30/24 22:31 05/30/24 22:31 05/30/24 22:30 05/30/24 22:16 05/30/24 22:16 05/30/24 22:01 05/30/24 22:01 05/30/24 22:00 05/30/24 21:46 05/30/24 21:46 05/30/24 21:31 05/30/24 21:31 05/30/24 21:30 05/30/24 21:16 05/30/24 21:16 05/30/24 21:15 05/30/24 21:01 05/30/24 21:01 05/30/24 20:46 05/30/24 20:46 05/30/24 20:45 05/30/24 20:31 05/30/24 20:31 05/30/24 20:30 05/30/24 20:20 05/30/24 20:20 05/30/24 20:15 05/30/24 20:15 05/30/24 20:14 05/30/24 20:14 05/30/24 20:11 05/30/24 20:11 05/30/24 20:10 05/30/24 20:10 05/30/24 20:05 05/30/24 20:05 05/30/24 20:00 05/30/24 20:00 05/30/24 19:58 05/30/24 19:58 05/30/24 19:55 05/30/24 19:55 05/30/24 19:50 05/30/24 19:50 05/30/24 19:45 05/30/24 19:45 05/30/24 19:43 05/30/24 19:43 05/30/24 19:40 05/30/24 19:40 05/30/24 19:35 05/30/24 19:35 05/30/24 19:30 05/30/24 19:30 05/30/24 19:28 05/30/24 19:28 05/30/24 19:25 05/30/24 19:25 05/30/24 19:20 05/30/24 19:20 05/30/24 19:15 05/30/24 19:15 05/30/24 19:13 05/30/24 19:13 05/30/24 19:10 05/30/24 19:10 05/30/24 19:05 05/30/24 19:05 05/30/24 19:00 05/30/24 19:00 05/30/24 18:58 05/30/24 18:58 05/30/24 18:57 05/30/24 18:55 05/30/24 18:55 05/30/24 18:50 05/30/24 18:50 05/30/24 18:45 05/30/24 18:45 05/30/24 18:44 05/30/24 18:44 05/30/24 18:40 05/30/24 18:40 05/30/24 18:35 05/30/24 18:35 05/30/24 18:33 05/30/24 18:33 05/30/24 18:30 05/30/24 18:30 05/30/24 18:28 05/30/24 18:28 05/30/24 18:25 05/30/24 18:25 05/30/24 18:20 05/30/24 18:20 05/30/24 18:15 05/30/24 18:15 05/30/24 18:15 05/30/24 18:15 05/30/24 18:10 05/30/24 18:10 05/30/24 18:05 05/30/24 18:05 05/30/24 18:00 05/30/24 18:00 05/30/24 17:59 05/30/24 17:59 05/30/24 17:55 05/30/24 17:55 05/30/24 17:50 05/30/24 17:50 05/30/24 17:45 05/30/24 17:45 05/30/24 17:43 05/30/24 17:43 05/30/24 17:40 05/30/24 17:40 Resident Activity Tracking Resident Involvement: Resident Care Provided Care Provided: Adult Hospital Medicine
[2024-05-31 06:31] LABS: Hematocrit (blood only) 36.3 % (37.0-47.0); Mean Corpuscular Hemoglobin 29.1 pg (25.0-34.0); Mean Corpuscular Hgb Conc 33.1 g/dL (32.0-36.0); Mean Corpuscular Volume 88.1 fL (80.0-100.0); Mean Platelet Volume 10.7 fL (9.4-12.4); Platelet Count 217 K/uL (130-400); RDW Coefficient of Variation 13.9 % (11.5-14.5); RDW Standard Deviation 44.3 fL (36.4-46.3); Red Blood Count 4.12 M/uL (4.20-5.40); White Blood Count 14.65 K/ul (4.8-10.8)
[2024-05-31] MEDS: PRENATAL VITAMIN 1 TAB PO SCH (09:01)
[2024-05-31] MEDS: bisacodyL 5 MG TABEC PO SCH (20:59)
[2024-05-31 23:01] VITALS: RESP 18; O2SAT 97
--- NOTE | 2024-06-01 06:04 | Obstetrical Progress Note ---
Date of Service June 01, 2024 Assessment & Plan (1) Encounter for care and examination after delivery: Plan Pt is 29 yo post- day 2 s/p at 40w0d. was uncomplicated. Dizziness/headache due to sinus congestion vs wet tap from epidural. Less likely from wet tap due to delay of onset of symptoms and overnight progression of nasal congestion. Pt educated regarding symptoms. Encourage ambulation and breast feeding Motrin 600mg q4h PRN and Tylenol 650mg q6h PRN for pain Monitor vitals Pt to follow up with Dr. Burnett in 6 weeks D/C to home Admission and Anticipated Discharge Date Admission Date: May 30, 2024 Supervising Physician Co-Signing Physician Notes Resident Physician Supervision Note: I was present with Dr. Perez during the history and exam. I discussed the case with the resident and agree with the findings and plan as documented in the note. Any exceptions or clarifications are listed here: stable doing well. some peguero, ? if related to congestion, doubt spinal peguero as only showed up this am and not likely positional. explained to pt. otherwise eating, voiding and ambulating. abd soft ff1 down nt, nt calves. ppd#2 ok to dc home, instructions previously reviewed. f/u 6 wk pp check. Documented By: Nicky Marie MD, FACOG Subjective Pt is 29 yo post- day 2 s/p at 40w0d. was uncomplicated. Ambulation:In and out of room Voiding:voiding normally Passing gas: yes BM: yes Diet tolerance:regular diet Lochia:bloody, no clots Feeding type: breast Current pain level: 0-3 /10 improved with ibuprofen and tylenol Resting comfortably this morning in NAD. Endorses Dizziness and PEGUERO with changes in position from supine to sit and sit to stand. Denies CP, SOB, N/V/D, LE pain/swelling. Review of Systems Review of Systems: As per HPI Physical Exam Constitutional: WD/WN, vitals as above Respiratory: normal respiratory effort, lungs clear to auscultation Cardiovascular: RRR, no murmur, no edema Gastrointestinal (Abdomen): normal bowel sounds, soft, nontender, no hepatosplenomegaly Uterine fundus is firm and cm below umbilicus Neurologic: PERRL, EOMI, accommodation nl, no face palsy, no dysarthria Psychiatric: A+Ox3, euthymic affect Results & Data Vital Signs (Past 12 Hours) Vital Signs Temp Pulse Resp BP Pulse Ox O2 Del Method 05/31/24 23:20 36.6 C 76 18 109/71 97 Room Air 05/31/24 20:05 36.7 C 82 18 118/75 97 Room Air Resident Activity Tracking Resident Involvement: Resident Care Provided Care Provided: Adult Hospital Medicine
[2024-06-01 06:13] LABS: Hematocrit (blood only) 34.7 % (37.0-47.0); Hemoglobin 11.7 g/dl (12.0-16.0)
[2024-06-01 09:36] VITALS: BP 123/82; PULSE 81; TEMP 98.4
== END 2024-06-01 12:15 | disposition home or self-care (01) | DRG 807 ==
LOC: 4S1 07:39 → 4E2 05-31 00:22
DX: Z88.8 Allergy status to other drugs, medicaments and biological substances; R51.9 Headache, unspecified; O80 Encounter for full-term uncomplicated delivery; Z3A.39 39 weeks gestation of pregnancy; R09.81 Nasal congestion; R42 Dizziness and giddiness; Z37.0 Single live birth